=== PATIENT | female | born 1985 | race Two or more races ===

== ENCOUNTER → 2024-04-25 | Outpatient (CLI) | payer BC, SELFPAY ==
[2024-04-25 09:18] LABS: Basophils # (Auto) 0.1 Thou/mm3 (0.0-0.2); Basophils % (Auto) 1 % (0-2.5); Eosinophils # (Auto) 0.3 Thou/mm3 (0.0-0.5); Eosinophils % (Auto) 6 % (0-10); Hematocrit 40.9 % (36.0-46.0); Hemoglobin 12.9 g/dL (12.0-16.0); Immature Granulocytes % (Auto) 0 % (0-0); Immature Granulocytes Auto 0.01 Thou/mm3 (0.00-0.00); Lymphocytes # (Auto) 1.6 Thou/mm3 (1.0-4.8); Lymphocytes % (Auto) 27 % (10-50); Mean Corpuscular HGB Conc 31.5 g/dl (31.0-37.0); Mean Corpuscular Hemoglobin 26.3 pg (25.0-35.0); Mean Corpuscular Volume 83 fL (80-100); Monocytes # (Auto) 0.5 Thou/mm3 (0.0-0.8); Monocytes % (Auto) 9 % (0-12); Neutrophils # (Auto) 3.3 Thou/mm3 (1.8-7.7); Neutrophils % (Auto) 57 % (37-80); Nucleated Red Blood Cell % 0 /100 WBC (0); Platelet Count 313 Thou/mm3 (140-440); RDW Standard Deviation 67.1 fL (36.4-46.3); Red Blood Count 4.91 Miln/mm3 (4.00-5.20); White Blood Count 5.8 Thou/mm3 (3.6-11.0)
[2024-04-25 09:40] LABS: Alanine Aminotransferase 19 U/L (10-49); Albumin, Serum 4.5 gm/dL (3.5-5.0); Albumin/Globulin Ratio 1.9 (1.2-2.2); Alkaline Phosphatase 93 U/L (46-116); Anion Gap 4 (7-16); Aspartate Amino Transferase 13 U/L (0-34); BUN/Creatinine Ratio 14 Ratio (12-20); Bilirubin,Total 0.5 mg/dL (0.3-1.2); Blood Urea Nitrogen 11 mg/dL (9-23); Calcium 9.5 mg/dL (8.3-10.6); Calcium (Corrected) 9.5 mg/dL (8.5-10.1); Carbon Dioxide 26.3 mMol/L (20.0-31.0); Chloride 109 mMol/L (98-107); Creatinine (Component) 0.8 mg/dL (0.6-1.3); Globulin 2.4 gm/dL (2.3-3.5); Glucose 128 mg/dL (74-106); Osmolality,Calculated 278 (275-295); Potassium 4.9 mMol/L (3.4-5.1); Sodium 139 mMol/L (136-145); Total Protein 6.9 gm/dL (5.7-8.2); eGFR > 60 See Note
[2024-04-25 09:42] LABS: Folate 21.19 ng/mL (>5.38); Vitamin B12 483 pg/mL (211-911)
[2024-04-25 10:06] LABS: Ferritin 95 ng/mL (7.3-270.7); Iron 103 mcg/dL (50-170); Percent Iron Saturation 32 % (20-55); Total Iron Binding Capacity 321 mcg/dL (250-425); Unsaturated Iron Binding 218 (225-295)
== END | disposition home or self-care (01) ==
PROVIDERS: PCP Family Medicine; Referring Provider Nurse Practitioner Family; Visit Provider Nurse Practitioner Family
DX: D50.8 Other iron deficiency anemias (principal)
CPT/HCPCS: 36415; 80053; 82607; 82728; 82746; 83540; 83550; 85025

== ENCOUNTER 2024-04-29 11:05 | Outpatient (RCR) | payer BC, SELFPAY | END 2024-05-10 23:59 | disposition home or self-care (01) | LOC: SCTC 11:05 | PROVIDERS: PCP Family Medicine; Referring Provider Family Medicine; Visit Provider Nurse Practitioner Family | DX: Z09 Encounter for follow-up examination after completed treatment for conditions other than malignant neoplasm (principal); Z86.2 Personal history of diseases of the blood and blood-forming organs and certain disorders involving the immune mechanism | CPT/HCPCS: 99212; G0463 ==

== ENCOUNTER → 2024-06-27 | Outpatient (CLI) | payer BC, SELFPAY ==
[2024-06-27 10:19] LABS: Basophils # (Auto) 0.1 Thou/mm3 (0.0-0.2); Basophils % (Auto) 1 % (0-2.5); Eosinophils # (Auto) 0.4 Thou/mm3 (0.0-0.5); Eosinophils % (Auto) 5 % (0-10); Hematocrit 41.7 % (36.0-46.0); Immature Granulocytes % (Auto) 0 % (0-0); Immature Granulocytes Auto 0.02 Thou/mm3 (0.00-0.00); Lymphocytes # (Auto) 1.8 Thou/mm3 (1.0-4.8); Lymphocytes % (Auto) 25 % (10-50); Mean Corpuscular HGB Conc 33.6 g/dl (31.0-37.0); Mean Corpuscular Hemoglobin 28.9 pg (25.0-35.0); Mean Corpuscular Volume 86 fL (80-100); Monocytes # (Auto) 0.6 Thou/mm3 (0.0-0.8); Monocytes % (Auto) 8 % (0-12); Neutrophils # (Auto) 4.4 Thou/mm3 (1.8-7.7); Neutrophils % (Auto) 60 % (37-80); Nucleated Red Blood Cell % 0 /100 WBC (0); Platelet Count 323 Thou/mm3 (140-440); RDW Standard Deviation 47.2 fL (36.4-46.3); Red Blood Count 4.85 Miln/mm3 (4.00-5.20); White Blood Count 7.2 Thou/mm3 (3.6-11.0)
[2024-06-27 10:48] LABS: Folate 13.88 ng/mL (>5.38); Vitamin B12 727 pg/mL (211-911)
[2024-06-27 10:49] LABS: Alanine Aminotransferase 23 U/L (10-49); Albumin, Serum 4.7 gm/dL (3.5-5.0); Albumin/Globulin Ratio 1.9 (1.2-2.2); Alkaline Phosphatase 102 U/L (46-116); Anion Gap 6 (7-16); Aspartate Amino Transferase 14 U/L (0-34); BUN/Creatinine Ratio 16 Ratio (12-20); Bilirubin,Total 0.4 mg/dL (0.3-1.2); Blood Urea Nitrogen 13 mg/dL (9-23); Calcium 9.6 mg/dL (8.3-10.6); Calcium (Corrected) 9.6 mg/dL (8.5-10.1); Carbon Dioxide 27.8 mMol/L (20.0-31.0); Chloride 105 mMol/L (98-107); Creatinine (Component) 0.8 mg/dL (0.6-1.3); Globulin 2.5 gm/dL (2.3-3.5); Glucose 162 mg/dL (74-106); Osmolality,Calculated 281 (275-295); Potassium 5.1 mMol/L (3.4-5.1); Sodium 139 mMol/L (136-145); Total Protein 7.2 gm/dL (5.7-8.2); eGFR > 60 See Note
[2024-06-27 11:00] LABS: Ferritin 30 ng/mL (7.3-270.7); Total Iron Binding Capacity 355 mcg/dL (250-425)
[2024-06-27 11:08] LABS: Iron 69 mcg/dL (50-170)
[2024-06-27 11:09] LABS: Percent Iron Saturation 19 % (20-55); Unsaturated Iron Binding 286 (225-295)
== END | disposition home or self-care (01) ==
LOC: SCTO 09:47
PROVIDERS: PCP Family Medicine; Referring Provider Nurse Practitioner Family; Visit Provider Nurse Practitioner Family
DX: D50.8 Other iron deficiency anemias (principal)
CPT/HCPCS: 36415; 80053; 82607; 82728; 82746; 83540; 83550; 85025

== ENCOUNTER 2024-07-01 14:49 | Outpatient (RCR) | payer BC, SELFPAY | END 2024-07-11 23:59 | disposition home or self-care (01) | LOC: SCTC 14:49 | PROVIDERS: PCP Family Medicine; Referring Provider Nurse Practitioner Family; Visit Provider Nurse Practitioner Family | DX: D50.9 Iron deficiency anemia, unspecified (principal) | CPT/HCPCS: 99212; G0463 ==

== ENCOUNTER → 2024-07-25 | Outpatient (CLI) | payer BC, SELFPAY ==
[2024-07-25 13:51] LABS: Collection Type, Urine Clean Catch
[2024-07-25 14:49] LABS: Bilirubin,Urine Negative (Negative); Blood,Urine 2+ (Negative); Clarity,Urine Clear (Clear/Hazy); Color,Urine Yellow (Lt Yel-Yel); Culture Indicated,Urine Not Indicated; Glucose, Urine 1+ (Negative); Ketones,Urine Negative (Negative); Leukocyte Esterase,Urine Negative (Negative); Nitrite,Urine Negative (Negative); PH,Urine 5.5 (5.0-7.0); Protein,Urine Trace (Neg - Trace); RBC,Urine 2 /hpf (0-3); Specific Gravity,Urine 1.029 (1.001-1.035); Squamous Epithelial Cell,Urine 16 /hpf (0-5); Urobilinogen,Urine Negative mg/dL (0.0-1.0); WBC,Urine 1 /hpf (0-5)
[2024-07-25 15:19] LABS: Syphilis Nonreactive (Nonreactive)
[2024-07-25 15:37] LABS: Hepatitis A Antibody IgM Non Reactive (Non React); Hepatitis B Core Antibody IgM Non Reactive (Non React); Hepatitis B Surface Antigen Non Reactive (Non React); Hepatitis C Antibody Non Reactive (Non React)
[2024-07-25 16:00] LABS: HIV (1&2) Antibody Rapid Non-Reactive
[2024-07-25 17:36] LABS: Chlamydia trachomatis PCR Negative (Not Detect); Neisseria Gonorrhoeae DNA PCR Negative (Not Detect); Trichomonas Negative (Negative)
== END | disposition home or self-care (01) ==
LOC: COPL 13:23
PROVIDERS: PCP Family Medicine; Referring Provider Nurse Practitioner Family; Visit Provider Nurse Practitioner Family
DX: N30.00 Acute cystitis without hematuria (principal); Z11.3 Encounter for screening for infections with a predominantly sexual mode of transmission
CPT/HCPCS: 36415; 80074; 81001; 86703; 86780; 87491; 87591; 87661

== ENCOUNTER → 2024-08-22 | Outpatient (CLI) | payer BC, SELFPAY ==
[2024-08-22 09:33] LABS: Basophils # (Auto) 0.1 Thou/mm3 (0.0-0.2); Basophils % (Auto) 1 % (0-2.5); Eosinophils # (Auto) 0.5 Thou/mm3 (0.0-0.5); Eosinophils % (Auto) 7 % (0-10); Hematocrit 40.8 % (36.0-46.0); Hemoglobin 13.3 g/dL (12.0-16.0); Immature Granulocytes % (Auto) 0 % (0-0); Immature Granulocytes Auto 0.02 Thou/mm3 (0.00-0.00); Lymphocytes # (Auto) 1.7 Thou/mm3 (1.0-4.8); Lymphocytes % (Auto) 24 % (10-50); Mean Corpuscular HGB Conc 32.6 g/dl (31.0-37.0); Mean Corpuscular Hemoglobin 29.2 pg (25.0-35.0); Mean Corpuscular Volume 90 fL (80-100); Monocytes # (Auto) 0.5 Thou/mm3 (0.0-0.8); Monocytes % (Auto) 7 % (0-12); Neutrophils # (Auto) 4.4 Thou/mm3 (1.8-7.7); Neutrophils % (Auto) 61 % (37-80); Nucleated Red Blood Cell % 0 /100 WBC (0); Platelet Count 322 Thou/mm3 (140-440); RDW Standard Deviation 42.2 fL (36.4-46.3); Red Blood Count 4.55 Miln/mm3 (4.00-5.20); White Blood Count 7.2 Thou/mm3 (3.6-11.0)
[2024-08-22 09:53] LABS: Alanine Aminotransferase 21 U/L (10-49); Albumin, Serum 4.1 gm/dL (3.5-5.0); Albumin/Globulin Ratio 1.6 (1.2-2.2); Alkaline Phosphatase 99 U/L (46-116); Anion Gap 8 (7-16); Aspartate Amino Transferase 15 U/L (0-34); BUN/Creatinine Ratio 15 Ratio (12-20); Bilirubin,Total 0.3 mg/dL (0.3-1.2); Blood Urea Nitrogen 12 mg/dL (9-23); Calcium 9.2 mg/dL (8.3-10.6); Calcium (Corrected) 9.2 mg/dL (8.5-10.1); Carbon Dioxide 25.4 mMol/L (20.0-31.0); Chloride 106 mMol/L (98-107); Creatinine (Component) 0.8 mg/dL (0.6-1.3); Globulin 2.6 gm/dL (2.3-3.5); Glucose 167 mg/dL (74-106); Osmolality,Calculated 281 (275-295); Potassium 5.1 mMol/L (3.4-5.1); Sodium 139 mMol/L (136-145); Total Protein 6.7 gm/dL (5.7-8.2); eGFR > 60 See Note
[2024-08-22 10:04] LABS: Vitamin B12 526 pg/mL (211-911)
[2024-08-22 10:06] LABS: Ferritin 12 ng/mL (7.3-270.7); Iron 35 mcg/dL (50-170); Percent Iron Saturation 9 % (20-55); Total Iron Binding Capacity 387 mcg/dL (250-425); Unsaturated Iron Binding 352 (225-295)
== END | disposition home or self-care (01) ==
LOC: SCTO 08:39
PROVIDERS: PCP Family Medicine; Referring Provider Nurse Practitioner Family; Visit Provider Nurse Practitioner Family
DX: D50.8 Other iron deficiency anemias (principal)
CPT/HCPCS: 36415; 80053; 82607; 82728; 82746; 83540; 83550; 85025

== ENCOUNTER 2024-08-28 15:27 | Outpatient (RCR) | payer BC, SELFPAY | END 2024-09-08 23:59 | disposition home or self-care (01) | LOC: SCTC 15:27 | PROVIDERS: PCP Family Medicine; Referring Provider Family Medicine; Visit Provider Nurse Practitioner Family | DX: D50.9 Iron deficiency anemia, unspecified (principal) | CPT/HCPCS: 99212; G0463 ==

== ENCOUNTER 2024-10-02 13:46 | Outpatient (RCR) | payer BC, SELFPAY | END 2024-10-08 23:59 | disposition home or self-care (01) | LOC: SCTC 13:46 | PROVIDERS: PCP Family Medicine; Referring Provider Family Medicine; Visit Provider Nurse Practitioner Family | DX: D50.9 Iron deficiency anemia, unspecified (principal) | CPT/HCPCS: 96365; 96375; J1439; J2919; J3490; J7040; J7050 ==

== ENCOUNTER 2024-10-09 13:23 | Outpatient (RCR) | payer BC, SELFPAY | END 2024-11-08 23:59 | disposition home or self-care (01) | LOC: SCTC 13:23 | PROVIDERS: PCP Family Medicine; Referring Provider Family Medicine; Visit Provider Nurse Practitioner Family | DX: D50.9 Iron deficiency anemia, unspecified (principal) | CPT/HCPCS: 96365; 96375; J1439; J2919; J3490; J7040; J7050 ==

== ENCOUNTER → 2024-11-24 | Outpatient (CLI) | payer BC, SELFPAY ==
[2024-11-24 15:47] LABS: Basophils # (Auto) 0.1 Thou/mm3 (0.0-0.2); Basophils % (Auto) 1 % (0-2.5); Eosinophils # (Auto) 0.4 Thou/mm3 (0.0-0.5); Eosinophils % (Auto) 6 % (0-10); Hematocrit 40.4 % (36.0-46.0); Hemoglobin 13.8 g/dL (12.0-16.0); Immature Granulocytes % (Auto) 0 % (0-0); Immature Granulocytes Auto 0.03 Thou/mm3 (0.00-0.00); Immature Reticulocyte Fraction 12.8 % (3.0-15.9); Lymphocytes # (Auto) 1.2 Thou/mm3 (1.0-4.8); Lymphocytes % (Auto) 17 % (10-50); Mean Corpuscular HGB Conc 34.2 g/dl (31.0-37.0); Mean Corpuscular Hemoglobin 30.1 pg (25.0-35.0); Mean Corpuscular Volume 88 fL (80-100); Monocytes # (Auto) 0.7 Thou/mm3 (0.0-0.8); Monocytes % (Auto) 10 % (0-12); Neutrophils # (Auto) 4.6 Thou/mm3 (1.8-7.7); Neutrophils % (Auto) 66 % (37-80); Nucleated Red Blood Cell % 0 /100 WBC (0); Platelet Count 283 Thou/mm3 (140-440); RDW Standard Deviation 46.3 fL (36.4-46.3); Red Blood Count 4.59 Miln/mm3 (4.00-5.20); Reticulocyte % (Auto) 1.7 % (0.5-1.5); Reticulocyte Absolute Auto 78.5 Biln/L (25.0-75.0); Reticulocyte Hgb Content 34.6 pg (28.0-35.0)
[2024-11-24 15:59] LABS: Alanine Aminotransferase 38 U/L (10-49); Albumin, Serum 4.4 gm/dL (3.5-5.0); Albumin/Globulin Ratio 1.9 (1.2-2.2); Alkaline Phosphatase 111 U/L (46-116); Anion Gap 8 (7-16); Aspartate Amino Transferase 24 U/L (0-34); BUN/Creatinine Ratio 10 Ratio (12-20); Bilirubin,Total 0.3 mg/dL (0.3-1.2); Blood Urea Nitrogen 8 mg/dL (9-23); Calcium 9.1 mg/dL (8.3-10.6); Calcium (Corrected) 9.1 mg/dL (8.5-10.1); Chloride 104 mMol/L (98-107); Creatinine (Component) 0.8 mg/dL (0.6-1.3); Globulin 2.3 gm/dL (2.3-3.5); Glucose 228 mg/dL (74-106); Osmolality,Calculated 280 (275-295); Potassium 4.6 mMol/L (3.4-5.1); Sodium 138 mMol/L (136-145); Total Protein 6.7 gm/dL (5.7-8.2); eGFR > 60 See Note
[2024-11-24 16:01] LABS: Ferritin 229 ng/mL (7.3-270.7); Folate 13.61 ng/mL (>5.38); Iron 46 mcg/dL (50-170); Percent Iron Saturation 15 % (20-55); Total Iron Binding Capacity 294 mcg/dL (250-425); Unsaturated Iron Binding 248 (225-295); Vitamin B12 561 pg/mL (211-911)
== END | disposition home or self-care (01) ==
LOC: SCTO 14:46
PROVIDERS: PCP Family Medicine; Referring Provider Nurse Practitioner Family; Visit Provider Nurse Practitioner Family
DX: D50.8 Other iron deficiency anemias (principal)
CPT/HCPCS: 36415; 80053; 82607; 82728; 82746; 83540; 83550; 85025; 85046

== ENCOUNTER 2024-11-27 15:15 | Outpatient (RCR) | payer BC, SELFPAY | END 2024-12-08 23:59 | disposition home or self-care (01) | LOC: SCTC 15:15 | PROVIDERS: PCP Family Medicine; Referring Provider Family Medicine; Visit Provider Nurse Practitioner Family | DX: D50.9 Iron deficiency anemia, unspecified (principal) | CPT/HCPCS: 99212; G0463 ==

== ENCOUNTER → 2025-01-07 | Outpatient (CLI) | payer BC, SELFPAY ==
[2025-01-07 08:21] LABS: Basophils # (Auto) 0.1 Thou/mm3 (0.0-0.2); Basophils % (Auto) 1 % (0-2.5); Eosinophils # (Auto) 0.2 Thou/mm3 (0.0-0.5); Eosinophils % (Auto) 3 % (0-10); Hematocrit 42.0 % (36.0-46.0); Hemoglobin 14.1 g/dL (12.0-16.0); Immature Granulocytes Auto 0.03 Thou/mm3 (0.00-0.00); Immature Reticulocyte Fraction 19.6 % (3.0-15.9); Lymphocytes # (Auto) 2.0 Thou/mm3 (1.0-4.8); Lymphocytes % (Auto) 28 % (10-50); Mean Corpuscular HGB Conc 33.6 g/dl (31.0-37.0); Mean Corpuscular Hemoglobin 31.1 pg (25.0-35.0); Mean Corpuscular Volume 93 fL (80-100); Monocytes # (Auto) 0.6 Thou/mm3 (0.0-0.8); Monocytes % (Auto) 8 % (0-12); Neutrophils # (Auto) 4.2 Thou/mm3 (1.8-7.7); Neutrophils % (Auto) 60 % (37-80); Nucleated Red Blood Cell # 0.00 Thou/mm3 (0.00-0.00); Nucleated Red Blood Cell % 0 /100 WBC (0); Platelet Count 307 Thou/mm3 (140-440); RDW Standard Deviation 45.5 fL (36.4-46.3); Red Blood Count 4.54 Miln/mm3 (4.00-5.20); Reticulocyte % (Auto) 2.0 % (0.5-1.5); Reticulocyte Absolute Auto 90.3 Biln/L (25.0-75.0); Reticulocyte Hgb Content 34.6 pg (28.0-35.0); White Blood Count 7.0 Thou/mm3 (3.6-11.0)
[2025-01-07 08:30] LABS: Glucose Estimated Average 200 mg/dL (80-131); Hemoglobin A1C 8.6 % Hgb (4.8-6.0)
[2025-01-07 08:36] LABS: Ferritin 225 ng/mL (7.3-270.7); Iron 96 mcg/dL (50-170); Percent Iron Saturation 34 % (20-55); Total Iron Binding Capacity 282 mcg/dL (250-425); Unsaturated Iron Binding 186 (225-295)
[2025-01-07 08:37] LABS: Folate 17.38 ng/mL (>5.38); Vitamin B12 520 pg/mL (211-911)
[2025-01-07 08:47] LABS: Alanine Aminotransferase 31 U/L (10-49); Albumin, Serum 4.3 gm/dL (3.5-5.0); Albumin/Globulin Ratio 1.7 (1.2-2.2); Alkaline Phosphatase 89 U/L (46-116); Anion Gap 9 (7-16); Aspartate Amino Transferase 19 U/L (0-34); BUN/Creatinine Ratio 8 Ratio (12-20); Bilirubin,Total 0.6 mg/dL (0.3-1.2); Blood Urea Nitrogen 6 mg/dL (9-23); Calcium 9.2 mg/dL (8.3-10.6); Calcium (Corrected) 9.2 mg/dL (8.5-10.1); Carbon Dioxide 26.2 mMol/L (20.0-31.0); Cardiac Risk Estimate 3.6 RATIO (3.7-5.6); Chloride 106 mMol/L (98-107); Cholesterol 163 mg/dL (132-200); Creatinine (Component) 0.8 mg/dL (0.6-1.3); Free T4 (Free Thyroxine) 1.46 ng/dL (0.89-1.76); Globulin 2.5 gm/dL (2.3-3.5); Glucose 204 mg/dL (74-106); HDL Cholesterol 45 mg/dL (40-60); LDL Cholesterol,Calculated 95 mg/dL (0-130); Osmolality,Calculated 284 (275-295); Potassium 4.8 mMol/L (3.4-5.1); Sodium 141 mMol/L (136-145); Thyroid Stimulating Hormone 0.57 uIU/mL (0.55-4.78); Total Protein 6.8 gm/dL (5.7-8.2); Triglycerides 116 mg/dL (30-150); eGFR > 60 See Note
[2025-01-07 08:49] LABS: Creatinine MALB Rnd Ur 226 mg/dL (30-125); Microalbumin Creat Ratio 3 mg/gCrea (<30); Microalbumin, Random Urine 6 mg/L (0-300)
== END | disposition home or self-care (01) ==
LOC: SCTO 07:04
PROVIDERS: PCP Internal Medicine Endocrinology, Diabetes & Metabolism; Referring Provider Family Medicine; Visit Provider Nurse Practitioner Family
DX: D50.8 Other iron deficiency anemias (principal); E11.65 Type 2 diabetes mellitus with hyperglycemia; E05.90 Thyrotoxicosis, unspecified without thyrotoxic crisis or storm
CPT/HCPCS: 36415; 80053; 80061; 82043; 82570; 82607; 82728; 82746; 83036; 83540; 83550; 84439; 84443; 85025; 85046

== ENCOUNTER → 2025-02-06 | Outpatient (CLI) | payer BC, SELFPAY ==
[2025-02-06 10:39] LABS: Basophils # (Auto) 0.1 Thou/mm3 (0.0-0.2); Basophils % (Auto) 1 % (0-2.5); Eosinophils # (Auto) 0.2 Thou/mm3 (0.0-0.5); Eosinophils % (Auto) 4 % (0-10); Hematocrit 43.3 % (36.0-46.0); Hemoglobin 14.2 g/dL (12.0-16.0); Immature Granulocytes Auto 0.02 Thou/mm3 (0.00-0.00); Lymphocytes # (Auto) 1.8 Thou/mm3 (1.0-4.8); Lymphocytes % (Auto) 28 % (10-50); Mean Corpuscular HGB Conc 32.8 g/dl (31.0-37.0); Mean Corpuscular Hemoglobin 30.7 pg (25.0-35.0); Mean Corpuscular Volume 94 fL (80-100); Monocytes # (Auto) 0.5 Thou/mm3 (0.0-0.8); Monocytes % (Auto) 7 % (0-12); Neutrophils # (Auto) 3.7 Thou/mm3 (1.8-7.7); Neutrophils % (Auto) 59 % (37-80); Nucleated Red Blood Cell # 0.00 Thou/mm3 (0.00-0.00); Nucleated Red Blood Cell % 0 /100 WBC (0); Platelet Count 360 Thou/mm3 (140-440); RDW Standard Deviation 43.9 fL (36.4-46.3); Red Blood Count 4.63 Miln/mm3 (4.00-5.20); White Blood Count 6.3 Thou/mm3 (3.6-11.0)
[2025-02-06 10:47] LABS: Glucose Estimated Average 183 mg/dL (80-131); Hemoglobin A1C 8.0 % Hgb (4.8-6.0)
[2025-02-06 10:55] LABS: Alanine Aminotransferase 30 U/L (10-49); Albumin, Serum 4.5 gm/dL (3.5-5.0); Albumin/Globulin Ratio 1.8 (1.2-2.2); Alkaline Phosphatase 95 U/L (46-116); Anion Gap 10 (7-16); Aspartate Amino Transferase 20 U/L (0-34); BUN/Creatinine Ratio 13 Ratio (12-20); Bilirubin,Total 0.6 mg/dL (0.3-1.2); Blood Urea Nitrogen 9 mg/dL (9-23); Calcium 10.0 mg/dL (8.3-10.6); Calcium (Corrected) 10.0 mg/dL (8.5-10.1); Carbon Dioxide 25.6 mMol/L (20.0-31.0); Cardiac Risk Estimate 3.6 RATIO (3.7-5.6); Chloride 103 mMol/L (98-107); Cholesterol 171 mg/dL (132-200); Creatinine (Component) 0.7 mg/dL (0.6-1.3); Globulin 2.5 gm/dL (2.3-3.5); Glucose 172 mg/dL (74-106); HDL Cholesterol 47 mg/dL (40-60); LDL Cholesterol,Calculated 97 mg/dL (0-130); Osmolality,Calculated 280 (275-295); Potassium 4.5 mMol/L (3.4-5.1); Sodium 139 mMol/L (136-145); Thyroid Stimulating Hormone 0.54 uIU/mL (0.55-4.78); Total Protein 7.0 gm/dL (5.7-8.2); Triglycerides 133 mg/dL (30-150); eGFR > 60 See Note
[2025-02-06 10:56] LABS: Iron 94 mcg/dL (50-170)
[2025-02-06 11:08] LABS: Syphilis Nonreactive (Nonreactive)
[2025-02-06 11:32] LABS: Hepatitis A Antibody IgM Non Reactive (Non React); Hepatitis B Core Antibody IgM Non Reactive (Non React); Hepatitis B Surface Antigen Non Reactive (Non React); Hepatitis C Antibody Non Reactive (Non React); Vitamin B12 529 pg/mL (211-911); Vitamin D 25 Hydroxy Total 29.6 ng/mL (7.3-40.2)
[2025-02-06 11:57] LABS: HIV (1&2) Antibody Rapid Non-Reactive
[2025-02-06 15:36] LABS: Chlamydia trachomatis PCR Negative (Not Detect); Neisseria Gonorrhoeae DNA PCR Negative (Not Detect); Trichomonas Negative (Negative)
== END | disposition home or self-care (01) ==
PROVIDERS: PCP Family Medicine; Referring Provider Nurse Practitioner Family; Visit Provider Nurse Practitioner Family
DX: Z00.00 Encounter for general adult medical examination without abnormal findings (principal); Z11.3 Encounter for screening for infections with a predominantly sexual mode of transmission
CPT/HCPCS: 36415; 80053; 80061; 80074; 82306; 82607; 83036; 83540; 84443; 85025; 86703; 86780; 87491; 87591; 87661

== ENCOUNTER 2025-02-26 15:07 | Outpatient (RCR) | payer BC, SELFPAY | END 2025-03-10 23:59 | disposition home or self-care (01) | LOC: SCTC 15:07 | PROVIDERS: PCP Nurse Practitioner Family; Referring Provider Nurse Practitioner Family; Visit Provider Nurse Practitioner Family | DX: D50.9 Iron deficiency anemia, unspecified (principal) | CPT/HCPCS: 99212; G0463 ==

== ENCOUNTER 2025-04-10 13:38 | Emergency (ER) | payer BC, SELFPAY ==
[2025-04-10 13:54] VITALS: BP 136/95; PULSE 71; RESP 18; TEMP 36.8; O2SAT 97; BMI 42.7
--- NOTE | 2025-04-10 14:16 | XR_ITS ---
Examination: CT brain head without contrast. 2-D sagittal coronal reconstructions Date and time of exam: April 10, 2025, 1559 hours INDICATIONS: Onset severe head pain today CTDI: vol (mGy): 55.5 DLP: (mGycm): 1008 Technique: Multiple CT axial sections of the brain have been obtained, 5 mm slice thickness. Contrast has not been administered. 2-D sagittal, coronal reconstructions have been obtained Low dose protocols were performed. One or more of the following dose reduction techniques were used; automated exposure control, adjustment of the mA and/or KV according to patient size, use of iterative reconstruction technique. Findings: No significant ventricular enlargement. Intra-axial or extra-axial hemorrhage density is not seen. No mass effect or midline shift Basal cisterns are not remarkable. Fourth ventricle is midline. Cranial vault intact. Large retention cysts in the maxillary antra Impression: Negative for acute hemorrhage, mass effect or midline shift
--- NOTE | 2025-04-10 14:18 | PD.EDHA ---
ED Headache RME/HPI General Chief Complaint: Headache Stated Complaint: Migraine, vertigo, vomiting Time Seen by Provider: 04/10/25 14:02 Arrival date/time: 39-year-old female patient came in for evaluation regarding headache. Patient's been having headache, dizziness, vertigo, nausea, vomiting, since early this morning. Patient had a headache last night, was diagnosis with migraine in the past, and took migraine medication with no relief. Patient denies any trauma. Denies any fever denies any other complaints no medications taken prior to ER visit. Related Data Previous Rx's ?Medication ?Instructions ?Recorded amoxicillin 875 mg-potassium 1 tab PO BID #14 tabs 04/10/25 clavulanate 125 mg tablet fexofenadine 60 mg-pseudoephedrine 1 tab PO Q12H PRN nasal congestion 04/10/25 ER 120 mg tablet,ext.release,12 hr #14 tabs (Irena-D 12 Hour) rizatriptan 10 mg tablet (Maxalt) See Rx Instructions PO .COMPLEX 04/10/25 #30 tabs Allergies Allergy/AdvReac Type Severity Reaction Status Date / Time No Known Allergies Allergy Verified 04/10/25 13:42 Review of Systems Review of Systems Narrative Review of Systems: Review of system reviewed and within normal limits except mentioned in HPI ED Exam Narrative Physical exam: VITAL SIGNS: Reviewed. GENERAL APPEARANCE: Alert and interactive, follows commands, no acute distress, HEAD AND FACE: Non-traumatic. ENT: PERRL, pink conjunctivitis, eyelid no trauma, Mucous membrane moist. NECK: Supple, nontender, no nuchal rigidity. CHEST: No tenderness, no crepitus, no paradoxical movement, no retractions. LUNGS: Clear, well ventilated, symmetric, no rales, no wheezing, no ronchi, no stridor, good breath sounds bilaterally. HEART: Regular rate, regular rhythm, no murmur, no gallops. ABDOMEN: Soft, positive bowel sounds, nondistended, no guarding, nontender, no rebound, no masses, RECTAL: Deferred. GENITAL: Deferred. NEUROLOGICAL: Gross motor function intact sensory function intact, Appropriate for age. MUSCULOSKELETAL: low back nontender, full range of motion. EXTREMITIES: Nontender, full range of motion. SKIN: Color pink, dry, no rash, no lacerations, no abrasions, no contusions. LYMPHATICS: Deferred. Course Quality Measures none Orders Category Date Time Status Glucose [Bedside Blood Glucose] NOW Care 04/10/25 14:[address] head/brain wo con Stat Exams 04/10/25 14:16 Completed DiphenhydrAMINE INJ [Benadryl Inj] Med 04/10/25 14:16 Discontinued 50 mg IVP X1 ONE Ketorolac Inj [Toradol Inj] Med 04/10/25 14:16 Discontinued 30 mg IVP X1 ONE Metoclopramide Inj [Reglan Inj] Med 04/10/25 14:16 Discontinued 10 mg IVP X1 ONE Ringers Lactated 1000 ml [Lactated Ringers] 1,000 ml Med 04/10/25 14:17 Discontinued IV 999 mls/hr Vital Signs Vital signs: Vital Signs Temperature 98.3 F 04/10/25 13:54 Pulse Rate 71 04/10/25 13:54 Respiratory Rate 18 04/10/25 13:54 Blood Pressure 136/95 H 04/10/25 13:54 Pulse Oximetry (%) 97 04/10/25 13:54 Oxygen Delivery Method Room Air 04/10/25 13:[address] [facility] Narrative:: 39-year-old female patient came in for evaluation regarding headache. Patient's been having headache, dizziness, vertigo, nausea, vomiting, since early this morning. Patient had a headache last night, was diagnosis with migraine in the past, and took migraine medication with no relief. Patient denies any trauma. Denies any fever denies any other complaints no medications taken prior to ER visit. CT scan of the head came back unremarkable except for large retention cyst on the maxillary sinus. Results discussed with the patient patient was also given a copy of her CT scan. Patient was given IV fluids, Benadryl, Toradol, Reglan, with complete resolution of symptoms. Patient was advised to follow-up with ENT. Stable for discharge home Patient data External records reviewed:: None Clinical information provided by:: patient Social determinants that could affect healthcare access:: none Patient has the following chronic illnesses:: None How is presenting disease/condition affected by chronic disease/condition?: no chronic disease Evaluation data The following diagnostics were reviewed and interpreted by me:: radiology exam(s) Lab and/or radiology exams considered but not ordered:: None Interpretation Summary: See MDM Medications / Prescriptions Medications or Prescriptions considered but not ordered:: None Medication administrations:: Medication Administration History Discontinued Medications Diphenhydramine HCl (Diphenhydramine Inj 50 Mg/Ml Vial) 50 mg IVP X1 ONE Stop: 04/10/25 14:17 Last Admin: 04/10/25 15:19 Dose: 50 mg Documented By: [facility] Lactated Ringer's (Lactated Ringers) 1,000 mls @ 999 mls/hr IV .Q1H1M ONE Stop: 04/10/25 15:17 Last Admin: 04/10/25 16:15 Dose: 999 mls/hr Documented By: Ketorolac Tromethamine (Ketorolac Inj 30 Mg/Ml Vial) 30 mg IVP X1 ONE Stop: 04/10/25 14:17 Last Admin: 04/10/25 15:22 Dose: 30 mg Documented By: [facility] Metoclopramide HCl (Metoclopramide Inj 5 Mg/Ml Vial 2 Ml) 10 mg IVP X1 ONE; Protocol Stop: 04/10/25 14:17 Last Admin: 04/10/25 15:17 Dose: 10 mg Documented By: [facility] Reglan Toradol IV fluids and Benadryl Consultations Consultation(s) initiated? (list below): No Diagnosis Differential diagnosis headache: migraine, tension headache and sinusitis Most likely diagnosis given after review of the tests above:: Sinusitis, headache, retention cyst maxillary sinus Admission Indicated Admission indicated?: not indicated Admission Request Was there a request for admission?: No Disposition Plan Disposition Plan: Discharge Discharge Attestation Discharge Attestation: The patient and all family members were given an opportunity to ask questions and understood the discharge instructions. Discharge instructions specifically effects, indications for sooner follow up or return to the emergency department, and the expected course of current diagnosis. Patient condition: Stable Discharge Plan Plan Patient Disposition: HOME (Self Care) Discharge Disposition comment: Stable Prescriptions/Referrals Prescriptions/Med Rec: New rizatriptan [Maxalt] 10 mg tablet See Rx Instructions .ROUTE .COMPLEX Qty: 30 0RF Rx Instructions: take 1 tab at onset of headache; if no relief may repeat 1 tab after at least 2 hrs; max = 3 tabs/24 hr fexofenadine-pseudoephedrine [Irena-D 12 Hour] 60-120 mg tablet extended release 12 hr 1 tab PO Q12H PRN (Reason: nasal congestion) Qty: 14 0RF amoxicillin-pot clavulanate 875-125 mg tablet 1 tab PO BID Qty: 14 0RF Referrals: No Primary/Family,Physician [Primary Care Provider] - In 1 week Problem List Clinical Impression: Sinusitis, Mucous retention cyst of maxillary sinus, Headache Patient/Caregiver Discharge Instructions Discharge Activity: activity as tolerated Education Materials: Causes of Sinusitis Additional Instructions: Thank you for the opportunity for serving you today. You are stable for discharged . You are advised to: Follow-up with your PCP in 1 to 2 days and asked for referral to ENT Return to ED for worsening of symptoms Increase oral fluids Take medication as prescribed Print Language: Turkmen Stand Alone Forms: Sophie Award Info., Patient Portal Info Letter PA/HEAD OF ACQUISITIONS Supervising Physician STEPHANIE/JOSE DANIEL Supervising Physician: MD Rene
[2025-04-10] MEDS: METOCLOPRAMIDE INJ 5 MG/ML VIAL 2 ML 10 MG IVP (15:17)
[2025-04-10] MEDS: KETOROLAC INJ 30 MG/ML VIAL IVP (15:22)
[2025-04-10] MEDS: RINGERS LACTATED 1000 ML 1,000 ML 999 ML IV (16:15)
[2025-04-10 16:17] VITALS: BP 102/66; PULSE 82; RESP 14; TEMP 36.9; O2SAT 98
[2025-04-10 18:30] VITALS: BP 116/75; PULSE 82; RESP 16; TEMP 36.7; O2SAT 98
--- NOTE | 2025-04-10 18:55 | PRELIM_ITS ---
CT scan of the head without intravenous contrast (axial sections with sagittal and coronal reformats). April 10, 2025 1559 hours Clinical History: Headache Comparison: No prior study is available for comparison. Findings: No evidence of intracranial hemorrhage, mass effect or midline shift. The ventricles and CSF spaces are unremarkable. The calvarium is unremarkable. There is moderate mucosal thickening in bilateral maxillary sinuses. The mastoid air cells and the other visualized paranasal sinuses are clear. Impression: No evidence of intracranial hemorrhage, mass effect or midline shift. Other findings as described above. Report Electronically Signed By: Torres Sharp 04/10/2025 6:55:49 PM [EST]
[2025-04-10 20:45] VITALS: BP 115/76; PULSE 79; RESP 16; TEMP 36.6; O2SAT 97
== END 2025-04-10 20:46 | disposition home or self-care (01) ==
PROVIDERS: Emergency Provider Emergency Medicine
DX: G43.909 Migraine, unspecified, not intractable, without status migrainosus (principal); J32.9 Chronic sinusitis, unspecified; J34.1 Cyst and mucocele of nose and nasal sinus
CPT/HCPCS: 70450; 96361; 96374; 96375; 99284; J1200; J1885; J2765; J7120

== ENCOUNTER → 2025-05-11 | Outpatient (CLI) | payer BC, SELFPAY ==
[2025-05-11 12:13] LABS: Basophils # (Auto) 0.1 Thou/mm3 (0.0-0.2); Basophils % (Auto) 1 % (0-2.5); Eosinophils # (Auto) 0.4 Thou/mm3 (0.0-0.5); Eosinophils % (Auto) 6 % (0-10); Hematocrit 41.7 % (36.0-46.0); Hemoglobin 13.7 g/dL (12.0-16.0); Immature Granulocytes Auto 0.03 Thou/mm3 (0.00-0.00); Immature Reticulocyte Fraction 17.1 % (3.0-15.9); Lymphocytes # (Auto) 2.1 Thou/mm3 (1.0-4.8); Lymphocytes % (Auto) 31 % (10-50); Mean Corpuscular HGB Conc 32.9 g/dl (31.0-37.0); Mean Corpuscular Hemoglobin 30.0 pg (25.0-35.0); Mean Corpuscular Volume 91 fL (80-100); Monocytes # (Auto) 0.5 Thou/mm3 (0.0-0.8); Monocytes % (Auto) 7 % (0-12); Neutrophils # (Auto) 3.8 Thou/mm3 (1.8-7.7); Neutrophils % (Auto) 55 % (37-80); Nucleated Red Blood Cell # 0.00 Thou/mm3 (0.00-0.00); Nucleated Red Blood Cell % 0 /100 WBC (0); Platelet Count 341 Thou/mm3 (140-440); RDW Standard Deviation 41.7 fL (36.4-46.3); Red Blood Count 4.56 Miln/mm3 (4.00-5.20); Reticulocyte % (Auto) 1.4 % (0.5-1.5); Reticulocyte Absolute Auto 64.8 Biln/L (25.0-75.0); Reticulocyte Hgb Content 35.5 pg (28.0-35.0); White Blood Count 6.9 Thou/mm3 (3.6-11.0)
[2025-05-11 12:24] LABS: Alanine Aminotransferase 24 U/L (10-49); Albumin, Serum 4.7 gm/dL (3.5-5.0); Albumin/Globulin Ratio 1.9 (1.2-2.2); Alkaline Phosphatase 102 U/L (46-116); Anion Gap 8 (7-16); Aspartate Amino Transferase 21 U/L (0-34); BUN/Creatinine Ratio 11 Ratio (12-20); Bilirubin,Total 0.3 mg/dL (0.3-1.2); Blood Urea Nitrogen 8 mg/dL (9-23); Calcium 9.2 mg/dL (8.3-10.6); Calcium (Corrected) 9.2 mg/dL (8.5-10.1); Carbon Dioxide 26.2 mMol/L (20.0-31.0); Chloride 105 mMol/L (98-107); Creatinine (Component) 0.7 mg/dL (0.6-1.3); Globulin 2.5 gm/dL (2.3-3.5); Glucose 159 mg/dL (74-106); Osmolality,Calculated 278 (275-295); Potassium 4.9 mMol/L (3.4-5.1); Sodium 139 mMol/L (136-145); Total Protein 7.2 gm/dL (5.7-8.2); eGFR > 60 See Note
[2025-05-11 12:31] LABS: Folate 9.19 ng/mL (>5.38); Vitamin B12 482 pg/mL (211-911)
[2025-05-11 12:36] LABS: Ferritin 86 ng/mL (7.3-270.7); Iron 66 mcg/dL (50-170); Percent Iron Saturation 22 % (20-55); Total Iron Binding Capacity 296 mcg/dL (250-425); Unsaturated Iron Binding 230 (225-295)
== END | disposition home or self-care (01) ==
LOC: COPL 10:32
PROVIDERS: PCP Nurse Practitioner Family; Referring Provider Nurse Practitioner Family; Visit Provider Nurse Practitioner Family
DX: D64.9 Anemia, unspecified (principal); D50.8 Other iron deficiency anemias
CPT/HCPCS: 36415; 80053; 82607; 82728; 82746; 83540; 83550; 85025; 85046

== ENCOUNTER 2025-05-12 09:14 | Outpatient (RCR) | payer BC, SELFPAY | END 2025-06-10 23:59 | disposition home or self-care (01) | LOC: SCTC 09:14 | PROVIDERS: PCP Nurse Practitioner Family; Referring Provider Nurse Practitioner Family; Visit Provider Nurse Practitioner Family | DX: Z09 Encounter for follow-up examination after completed treatment for conditions other than malignant neoplasm (principal); Z86.2 Personal history of diseases of the blood and blood-forming organs and certain disorders involving the immune mechanism; N92.0 Excessive and frequent menstruation with regular cycle; E66.9 Obesity, unspecified; R73.03 Prediabetes; Z68.31 Body mass index [BMI] 31.0-31.9, adult | CPT/HCPCS: 99212; G0463 ==

== ENCOUNTER → 2025-06-08 | Outpatient (CLI) | payer BC, SELFPAY ==
--- NOTE | 2025-06-08 11:30 | XR_ITS ---
Examination: Transvaginal ultrasound of the pelvis, complete Technique: Transvaginal sonographic images pelvis performed using melendez scale imaging Exam date and time: June 08, 2025, 1216 hours INDICATIONS: History uterine fibroid areas of degeneration FINDINGS: Uterus 9.4 cm, uterine body area fibroid degeneration 3.4 x 2.3 x 2.3 cm Endometrial 5.2 cm Right ovary 2.7 cm arterial flow Left ovary 2.3 cm arterial flow Small bilateral ovarian follicles IMPRESSION: Uterine area fibroid degeneration 3.4 x 2.3 x 2.3 cm.
== END | disposition home or self-care (01) ==
PROVIDERS: PCP Family Medicine; Referring Provider Nurse Practitioner Family; Visit Provider Nurse Practitioner Family
DX: D25.9 Leiomyoma of uterus, unspecified (principal)
CPT/HCPCS: 76830